=== PATIENT | female | born 1990 | race Caucasian/White ===

== ENCOUNTER → 2017-01-08 | Outpatient (CLI) | payer BC ==
[2017-01-08 16:34] LABS: BASOPHILS # (AUTO) 0.02 10*3/UL; BASOPHILS % (AUTO) 0.3 % (0-1); EOSINOPHILS # (AUTO) 0.14 10*3/UL; EOSINOPHILS % (AUTO) 1.9 % (0-8); HEMATOCRIT 39.8 % (37.0-47.0); HEMOGLOBIN 13.3 g/dL (12.0-16.0); LYMPHOCYTES # (AUTO) 1.91 10*3/uL; MEAN CORPUSCULAR HEMOGLOBIN 27.3 PG (27-31); MEAN CORPUSCULAR HGB CONC 33.4 g/dL (33-37); MEAN CORPUSCULAR VOLUME 81.6 FL (81-99); MONOCYTES # (AUTO) 0.73 10*3/UL (0.3-0.8); MONOCYTES % (AUTO) 10.1 % (5-15); NEUTROPHILS # (AUTO) 4.39 10*3/UL; NEUTROPHILS % (AUTO) 61.1 % (50-80); PLATELET MORPHOLOGY COMMENT NORMAL MORPHOLOGY (NORM); RBC MORPHOLOGY COMMENT NORMAL MORPHOLOGY (NORM); RED BLOOD COUNT 4.88 10^6/uL (4.20-5.40); WBC MORPHOLOGY COMMENT NORMAL MORPHOLOGY (NORM)
[2017-01-08 17:14] LABS: HIV ANTIBODY NEGATIVE (N); HIV-1 P24 ANTIGEN NEGATIVE (N)
[2017-01-10 13:23] LABS: HEP B SURFACE AG Negative (Negative)
== END ==
LOC: MOB LAB 15:57
PROVIDERS: ATTEND Obstetrics & Gynecology
DX: Z36 Encounter for antenatal screening of mother (principal); Z3A.09 9 weeks gestation of pregnancy
CPT/HCPCS: 36415; 80081; 86900; 86901; 87088

== ENCOUNTER → 2017-03-21 | Outpatient (CLI) | payer BC ==
--- NOTE | 2017-03-21 21:31 | DI ---
OBSTETRICAL ULTRASOUND, 03/21/2017 4:53 PM: Clinical History: Antepartum screening. Previous Exam: None at this facility for this . ADJUSTED DATE FROM EARLY OBUS: 11/07/2016. There is a single live IUP currently in breech presentation. Amnionic fluid content is normal. activity is observed as follows: cardiac, extremity, and respiratory. The placenta is anterior corpus and Grade 1. heart rate is between 138-153 beats/minute and is regular. There is a [address] The RVOT, LVOT and 4 chamber heart view are normal. The aortic arch and descending aorta are norm al. Views of the spine, face, and kidneys are unremarkable. BPD, HC, AC, and FL measurements ar e 43 mm, 170 mm, 140 mm, and 32 mm, respectively. These measurements correspond to EGA values of 19 w eeks 1 day, 19 weeks 5 days, 19 weeks 3 days and 20 weeks 0 days, respectively. Composite EGA is 19 w eeks 4 days The US EDC is 08/11/2017. EDC by adjusted LMP is 08/12/2017. Readin. Single live fetus currently in breech presentation with normal amniotic fluid content. Placenta i s anterior corpus and grade 1. 2. The composite EGA is 19 weeks 4 days with an ultrasound EDC of 08/11/2017. Based on the adjusted L MP date of 11/07/2016, EC would be 08/12/2017. 3. The antepartum screening exam is normal.
== END ==
LOC: US 16:50
PROVIDERS: ATTEND Obstetrics & Gynecology
DX: Z36 Encounter for antenatal screening of mother (principal); Z3A.19 19 weeks gestation of pregnancy
CPT/HCPCS: 76805

== ENCOUNTER 2017-08-05 18:09 | Inpatient (IN) ==
[2017-08-05] MEDS ORDERED: MISOPROSTOL 200 MCG TABLET RECTAL PRN (20:06)
[2017-08-05] MEDS ORDERED: diphenhydrAMINE 50 MG/1 ML VIAL IVP PRN (20:06)
[2017-08-05] MEDS ORDERED: Nalbuphine Inj 20 MG/ML Ampule IVP PRN (20:06)
[2017-08-05] MEDS ORDERED: Lidocaine 1% 10 MG/ML - 20 ML VIAL SUBCUT PRN (20:06)
[2017-08-05] MEDS ORDERED: METHYLERGONOVINE MALEATE 0.2 MG/1 ML VIAL IM PRN (20:06)
[2017-08-05] MEDS ORDERED: CefOXitin Inj 2 GM in Sodium Chloride 0.9% 100 ML IV PRN (20:06)
[2017-08-05] MEDS ORDERED: Carboprost Inj 250 MCG/ML AMP IM PRN (20:06)
[2017-08-05] MEDS ORDERED: Naloxone Inj 0.01 MG in Normal Saline Flush 1 ML IVP PRN (20:06)
[2017-08-05] MEDS ORDERED: Metoclopramide Inj 10 MG/2 ML VIAL IV PRN (20:06)
[2017-08-05] MEDS ORDERED: CITRIC ACID/SODIUM CITRATE 30 ML CUP PO PRN (20:06)
[2017-08-05] MEDS ORDERED: LIDOCAINE HCL 2 % 10 ML JELLY URO-JECT TOPICAL PRN (20:06)
[2017-08-05] MEDS ORDERED: BUTORPHANOL TARTRATE 2 MG/1 ML VIAL IVP PRN (20:06)
[2017-08-05] MEDS ORDERED: CALCIUM CARBONATE 500 MG (TUMS) CHEWABLE TABLET PO PRN (20:06)
[2017-08-05] MEDS ORDERED: fentaNYL Inj 100 MCG/2 ML VIAL IV PRN (20:06)
[2017-08-05] MEDS ORDERED: TERBUTALINE SULFATE 1 MG/1 ML SDV SUBCUT PRN (20:06)
[2017-08-05] MEDS ORDERED: OXYTOCIN 10 UNIT/1 ML IM PRN (20:06)
[2017-08-05] MEDS ORDERED: NALOXONE 0.4 MG/1 ML VIAL IVP PRN (20:06)
[2017-08-05] MEDS ORDERED: Famotidine Inj 20 MG in Normal Saline Flush 10 ML IVP PRN ×4 (20:06)
[2017-08-05] MEDS ORDERED: ONDANSETRON 4 MG/2 ML VIAL IVP PRN (20:06)
[2017-08-05] MEDS ORDERED: LIDOCAINE W/ SODIUM BICARB 0.5 ML SYR SUBD PRN (20:06)
[2017-08-05] MEDS ORDERED: NORMAL SALINE 10 ML SYRINGE FLUSH IVP PRN (20:06)
[2017-08-05] MEDS ORDERED: Phenylephrine Inj 50 MCG in Normal Saline Flush 0.5 ML IVP PRN (20:06)
[2017-08-05] MEDS ORDERED: Oxytocin 20 Units + LR 20 UNIT/1,000 ML BAG IV SCH ×2 (20:15→21:15)
--- NOTE | 2017-08-05 20:30 | OB.PROGRES ---
Interval History: 26 yo at 39 0/7 weeks gestation via first trimester ultrasound presents for elective IOL. Unfortunately her father was involved in an accident with a shooting to his head, he is still in the ICU although he was taken off of the vent. She is interested in proceeding with delivery from a practical standpoint to start planning the [facility] services. complicated only by threatened labor at 35 weeks for which she received celestone. Delivered 03/18/15 via 6 lb 14 oz female infant. She was induced at 40 5/7 electively, received one dose of cytotec then pitocin. She did have mild uterine atony for which she received cytotec and methergine. GBS positive this . Rubella Nonimmune. Blood type A+. Patient reports irregular contractions, not too painful. Denies LOF, VB, decreased FM. Objective - Cervical Exam Cervical Exam: 2-3/60/-3 [place]: q1-5 mins Heart Rate: baseline 140, moderate variability, +accels, -decels Heart Rate Interpretation Category: Category I Assessment and Plan - Patient Problems (1) Elective induction of labor planned Current Visit: Yes Status: Acute Support Text: Admit to L&D, elective IOL at 39 0/7 weeks gestation GBS positive, will start PCN G Plan to do pitocin as she is nish too frequently for cytotec Anticipate vaginal delivery Cephalic on u/s, EFW 3400 grams
[2017-08-05 20:35] LABS: Hematocrit [HCT] 40.5 % (37.0-47.0); Hemoglobin [HGB] 13.4 g/dL (12.0-16.0)
[2017-08-05 20:37] LABS: MEAN PLATELET VOLUME 7.6 FL (7.4-12.2)
[2017-08-05 20:38] LABS: MEAN CORPUSCULAR HEMOGLOBIN 28.8 PG (27-31); MEAN CORPUSCULAR HGB CONC 33.1 g/dL (33-37); MEAN CORPUSCULAR VOLUME 87 FL (81-99); RED BLOOD COUNT 4.66 10^6/uL (4.20-5.40)
[2017-08-05] MEDS: Lactated Ringers-OB Dept 1,000 ML PRIMARY IV SCH ×2 (20:49→22:50)
[2017-08-05] MEDS ORDERED: diphenhydrAMINE HCL 12.5 MG/5 ML UD CUP PO PRN ×2 (21:01→21:49)
[2017-08-05] MEDS ORDERED: Fent/Bupiv 2mcg/0.0625% Epid 250 ML ONE (22:52)
--- NOTE | 2017-08-05 23:21 | CRNA.PROGR ---
Anesthesia Time - - Start date: 08/05/17 End date: 08/06/17 - Procedure/Recovery Time Anesthesia : Time In: 22:50 Anesthesia : Time Out: 13:11 Anesthesia : Total Time: 861 - Total Anesthesia Time Total Anesthesia Time (minutes): 861 - Other Weight: 97.976 kg Height: 5 ft 7 in Body Mass Index (BMI): 33.8 Physical Status: P2 Anesthesia Type: Epidural Obstetrics: Planned vaginal delivery w/ neuraxial labor anesthesia/analog
[2017-08-05] MEDS: ePHEDrine Inj 5 MG in Normal Saline Flush 1 ML IVP PRN ×2 (23:22→23:40)
[2017-08-05] MEDS ORDERED: fentaNYL 2 MCG/BUPIVACAINE 0.0625%/NS 0.9% 250 ML BAG EPIDURAL SCH (23:30)
[2017-08-06] MEDS: Lactated Ringers-OB Dept 1,000 ML PRIMARY IV SCH ×3 (02:03→11:20)
--- NOTE | 2017-08-06 08:15 | OB.PROGRES ---
Interval History: Epidural placed overnight. She was able to get some rest. Comfortable currently. Objective - Cervical Exam Cervical Exam: /-2, AROM, blood tinged fluid [place]: q2-5 minutes Heart Rate: baseline 160, mod variability, + accels, -decels Heart Rate Interpretation Category: Category I - Labs CBC and BMP: 08/05/17 20:35 - Vital Signs Last Taken Vital Signs: Vital Signs - Last Taken Temperature 98.2 F 08/06/17 05:30 Pulse Rate 84 08/06/17 06:00 Respiratory Rate 18 08/06/17 07:20 Blood Pressure 115/70 08/06/17 06:00 Pulse Ox 99 08/06/17 07:20 Assessment and Plan - Patient Problems (1) Elective induction of labor planned Current Visit: Yes Status: Acute Support Text: 27 yo at 39 1/7 weeks gestation here for elective IOL Low dose pit through the night with some change AROM just now Continue to titrate pit as tolerated Anticipate vaginal delivery GBS positive, continue PCN G, has received adequate abx at this point
--- NOTE | 2017-08-06 12:35 | OB.DEL.SUM ---
Delivery Note Delivery Summary: The patient progressed rapidly after rupture of membranes. She achieved complete dilation with epidural analgesia in place. She pushed well to of a viable female infant, Apgars 7/8, from OA position over a small first degree vaginal laceration at the forchette. The placenta delivered promptly, spontaneously, intact, with a 3 vessel cord. Repair was made with 3-0 Vicryl Rapide suture in the usual manner. Mild atony responded well to massage and a dose of IM methergine followed by rectal cytotec after the IV infiltrated. There were no complications. Mother and baby tolerated delivery well.
[2017-08-06] MEDS ORDERED: NORMAL SALINE 10 ML SYRINGE FLUSH IVP PRN (13:42)
[2017-08-06] MEDS ORDERED: LIDOCAINE HCL 2 % 10 ML JELLY URO-JECT TOPICAL PRN (13:42)
[2017-08-06] MEDS ORDERED: DIPH,PERTUSS,TET(ADACEL) VAC/PF 0.5 ML (Tdap) IM ONE (13:42)
[2017-08-06] MEDS ORDERED: BENZOCAINE/MENTHOL SPRAY 56 GM BOTTLE TOPICAL PRN (13:42)
[2017-08-06] MEDS ORDERED: diphenhydrAMINE 25 MG CAPSULE PO PRN (13:42)
[2017-08-06] MEDS ORDERED: HYDROcodone-APAP 5 MG -325 MG TABLET PO PRN (13:42)
[2017-08-06] MEDS ORDERED: LANOLIN HPA 40 GM TUBE TOPICAL PRN (13:42)
[2017-08-06] MEDS ORDERED: Nalbuphine Inj 20 MG/ML Ampule IVP PRN (13:42)
[2017-08-06] MEDS ORDERED: Ondansetron ODT Tab 4 MG TAB PO PRN (13:42)
[2017-08-06] MEDS ORDERED: ACETAMINOPHEN 325 MG TABLET PO PRN (13:42)
[2017-08-06] MEDS ORDERED: ONDANSETRON 4 MG/2 ML VIAL IVP PRN (13:42)
[2017-08-06] MEDS ORDERED: CALCIUM CARBONATE 500 MG (TUMS) CHEWABLE TABLET PO PRN (13:42)
[2017-08-06] MEDS ORDERED: GLYCERIN/WITCH HAZEL 1 BOX TOPICAL PRN (13:42)
[2017-08-06] MEDS ORDERED: diphenhydrAMINE 50 MG/1 ML VIAL IVP PRN (13:42)
[2017-08-06] MEDS ORDERED: Oxytocin 20 Units + LR 20 UNIT/1,000 ML BAG IV SCH (13:42)
[2017-08-06] MEDS: IBUPROFEN 800 MG TABLET PO PRN (20:24)
[2017-08-06] MEDS: DOCUSATE 100 MG CAPSULE PO SCH (20:24)
[2017-08-07 05:14] VITALS: RESP 16
[2017-08-07] MEDS ORDERED: MMR VACCINE 12500 UNIT/0.5 ML SUBCUT ONE (08:14)
[2017-08-07 08:26] LABS: Hematocrit [HCT] 33.9 % (37.0-47.0); Hemoglobin [HGB] 11.4 g/dL (12.0-16.0); MEAN CORPUSCULAR HEMOGLOBIN 29.2 PG (27-31); MEAN CORPUSCULAR HGB CONC 33.5 g/dL (33-37); MEAN CORPUSCULAR VOLUME 87 FL (81-99); MEAN PLATELET VOLUME 7.6 FL (7.4-12.2); RED BLOOD COUNT 3.89 10^6/uL (4.20-5.40)
--- NOTE | 2017-08-07 08:35 | OB.PROGRES ---
Subjective Post Op Day: 1 Pain Management: PO Hunter Catheter: No Flatus: Yes Diet: Regular Feeding Method: Exculsively Ambulating: Yes Concerns / Additional Information: Doing well this morning. Normal lochia. No complaints. Would like to go home this afternoon. Assesstment / Plan Assessment / Plan: PPD 1, doing well. Discharge to home.
--- NOTE | 2017-08-07 08:37 | DCSUMMARY ---
Hospitalization Summary Admit Date: 08/05/17 Discharge Date: 08/07/17 Primary Diagnosis:: Term , Delivered Delivery Type: Vaginal Hospital Course: The patient was admitted to L&D for elective induction at >39 weeks EGA. She was given pitocin and amniotomy was performed which resulted in progression into active labor. She had an uncomplicated vaginal delivery and a normal course. She was discharged to home on PPD1 in good condition. Regular Diet. F/u 6 weeks. / Postop Complications: None [place] Complications: None Exam - Vitals Vital Signs: Vital Signs Temperature 98.1 F Temperature Source Oral Pulse Rate [Pulse Oximeter] 85 Pulse Rate 91 Respiratory Rate [Contractions 20 ] Respiratory Rate 16 Blood Pressure [Left Arm] 122/73 Blood Pressure [Right Arm] 114/86 Blood Pressure 125/67 Pulse Ox 95 Oxygen Delivery Method Room Air Height 5 ft 7 in Weight 216 lb
[2017-08-07 08:38] VITALS: BP 105/63; TEMP 98.3; O2SAT 97
[2017-08-07] MEDS: IBUPROFEN 800 MG TABLET PO PRN ×2 (08:46→13:47)
[2017-08-07] MEDS: DOCUSATE 100 MG CAPSULE PO SCH (08:46)
[2017-08-07] MEDS ORDERED: Prenatal Multivitamin Tab 1 TAB TAB PO SCH (09:00)
== END 2017-08-07 14:45 | disposition home or self-care (01) | DRG 775 ==
LOC: OBIP 20:06
PROVIDERS: ADMIT Obstetrics & Gynecology; ATTEND Obstetrics & Gynecology